=== PATIENT | female | born 1970 | race Caucasian/White ===

== ENCOUNTER → 2020-12-19 09:46 | Outpatient (CLI) | payer OTHER, MEDICAID, SELFPAY ==
[2020-12-19 19:29] LABS: Vitamin D 25 Hydroxy (D3) 20.6 ng/mL (30.0-100.0)
[2020-12-19 19:41] LABS: Add Manual Diff / Slide Review NO; Basophils Absolute Auto 0 /uL (0-100); Basophils Percent Auto 0.7 % (0-2); Eosinophils Absolute Auto 100 /uL (0-450); Eosinophils Percent Auto 2.8 % (2-4); Hematocrit 41.6 % (36-46); Hemoglobin 13.9 g/dL (12.0-16.0); Lymphocytes Absolute Auto 1800 /uL (1100-4500); Mean Corpuscular HGB Conc 33.3 % (30-36); Mean Corpuscular Hemoglobin 31.7 PG (26-34); Monocytes Absolute Auto 600 /uL (0-900); Monocytes Percent Auto 13.4 % (3-14); Neutrophils Absolute Auto 1800 /uL (1500-7000); Neutrophils Percent Auto 42.1 % (50-75); Platelet Count 172 X10^3/uL (150-400); Red Blood Cell Count 4.38 X10^6/uL (4.0-5.2); Red Cell Distribution Width 12.9 % (11.6-14.8); White Blood Cell Count 4.4 X10^3/uL (4.5-11.0)
[2020-12-19 19:42] LABS: TSH w/ Reflex to FT4 1.83 uIU/mL (0.47-4.68)
== END ==
PROVIDERS: PCP Family Medicine; Visit Provider Family Medicine
DX: E03.9 Hypothyroidism, unspecified (principal)
CPT/HCPCS: 82306; 84443; 85025

== ENCOUNTER → 2021-01-04 10:22 | Outpatient (CLI) | payer OTHER, MEDICAID, SELFPAY ==
[2021-01-05 10:37] LABS: SARS-CoV19- IgM Negative (Negative)
== END ==
PROVIDERS: PCP Family Medicine; Referring Provider Family Medicine; Visit Provider Family Medicine
DX: E03.9 Hypothyroidism, unspecified (principal); Z20.822 Contact with and (suspected) exposure to COVID-19
CPT/HCPCS: 36415; 86769

== ENCOUNTER → 2021-08-29 08:08 | Outpatient (CLI) | payer OTHER, MEDICAID, SELFPAY ==
[2021-08-29 18:48] LABS: Add Manual Diff / Slide Review NO; Basophils Absolute Auto 0 /uL (0-100); Basophils Percent Auto 0.5 % (0-2); Eosinophils Absolute Auto 100 /uL (0-450); Hematocrit 40.3 % (36-46); Hemoglobin 13.7 g/dL (12.0-16.0); Lymphocytes Absolute Auto 1600 /uL (1100-4500); Mean Corpuscular HGB Conc 34.1 % (30-36); Mean Corpuscular Hemoglobin 31.7 PG (26-34); Mean Corpuscular Volume 93.2 fL (80-100); Monocytes Absolute Auto 400 /uL (0-900); Monocytes Percent Auto 8.5 % (3-14); Neutrophils Absolute Auto 2900 /uL (1500-7000); Platelet Count 178 X10^3/uL (150-400); Red Blood Cell Count 4.33 X10^6/uL (4.0-5.2); Red Cell Distribution Width 12.9 % (11.6-14.8); White Blood Cell Count 5.1 X10^3/uL (4.5-11.0)
[2021-08-29 18:56] LABS: Alanine Aminotransferase 11 IU/L (<35); Albumin 4.1 g/dL (3.5-5.0); Albumin Globulin Ratio 1.6 (1.0-2.8); Alkaline Phosphatase 61 U/L (38-126); Aspartate Aminotransferase 22 IU/L (14-36); Bilirubin Total 0.6 mg/dL (0.2-1.3); Blood Urea Nitrogen 12 mg/dL (7-17); Calcium 9.1 mg/dL (8.4-10.2); Carbon Dioxide 29 mmol/L (22-32); Chloride 103 mmol/L (98-107); Cholesterol 220 mg/dL (140-199); Estimated Glomerular Filt Rate > 60.0 mL/min (>60); Globulin 2.5 g/dL (1.7-4.1); Glucose 94 mg/dL (70-100); HDL Cholesterol 82 mg/dL (40-60); HEMOLYSIS 30 (0-50); LDL Cholesterol Calculated 122 mg/dL (<100); Potassium 3.5 mmol/L (3.4-5.1); Sodium 137 mmol/L (137-145); Total Protein 6.6 g/dL (6.3-8.2); Triglycerides 82 mg/dL (35-150)
[2021-08-29 19:14] LABS: Vitamin D 25 Hydroxy (D3) 44.9 ng/mL (30.0-100.0)
[2021-08-29 19:28] LABS: TSH w/ Reflex to FT4 2.22 uIU/mL (0.47-4.68)
== END ==
PROVIDERS: PCP Family Medicine; Visit Provider Physician Assistant
DX: E03.9 Hypothyroidism, unspecified (principal); E78.00 Pure hypercholesterolemia, unspecified
CPT/HCPCS: 80053; 80061; 82306; 84443; 85025

== ENCOUNTER → 2022-08-16 14:29 | Outpatient (CLI) | payer OTHER, MEDICAID, SELFPAY ==
--- NOTE | 2022-08-16 14:32 | DI.MG.S_ITS ---
BILATERAL DIGITAL SCREENING MAMMOGRAM 3D/2D WITH CAD: 08/16/2022 CLINICAL: Baseline exam. Routine screening. No prior exams were available for comparison. Both breasts are heterogeneously dense, which may obscure small masses (category c / 51-75% glandular tissue). Current study was also evaluated with a Computer Aided Detection (CAD) system. There is a possible 0.5 cm equal density focal asymmetry in the right breast at 9 o'clock middle depth. No other significant masses, calcifications, or other findings are seen in either breast. IMPRESSION: INCOMPLETE: NEEDS ADDITIONAL IMAGING EVALUATION The possible 0.5 cm equal density focal asymmetry in the right breast is indeterminate. Additional views with possible ultrasound are recommended. Based on the Tyrer Cuzick model (a risk assessment model) the patient's lifetime risk is 11.1% and her 10 year risk is 3.2%. According to the ACR, ACS, and NCCN guidelines, an annual breast MRI exam along with mammogram is recommended if the patient's lifetime risk is 20% or greater. This exam was interpreted at Station ID: [id number]. NOTE: For mammograms, a report in lay terms will be sent to the patient. Approximately 15% of breast malignancies will not be visualized mammographically. In the management of a palpable breast mass, a negative mammogram must not discourage biopsy of a clinically suspicious lesion. Electronically Signed By: Jv Gonzalez M.D. aty/:08/16/2022 20:06:59 letter sent: Additional Imaging Needed ACR BI-RADS Category 0: Incomplete 3340F
== END ==
PROVIDERS: PCP Physician Assistant; Referring Provider Physician Assistant; Visit Provider Physician Assistant
DX: Z12.31 Encounter for screening mammogram for malignant neoplasm of breast (principal); Z13.820 Encounter for screening for osteoporosis; M81.0 Age-related osteoporosis without current pathological fracture; Z78.0 Asymptomatic menopausal state; M77.11 Lateral epicondylitis, right elbow
CPT/HCPCS: 77063; 77067; 77080

== ENCOUNTER → 2022-10-22 13:39 | Outpatient (CLI) | payer OTHER, MEDICAID, SELFPAY ==
--- NOTE | 2022-10-22 | DI.MG.S_ITS ---
UNILATERAL RIGHT DIGITAL DIAGNOSTIC MAMMOGRAM 3D/2D WITH ADDITIONAL VIEWS: 10/22/2022 CLINICAL: Additional evaluation requested from prior study. Comparison is made to exam dated: 08/16/2022 mammogram - [facility]. The right breast is heterogeneously dense, which may obscure small masses (category c / 51-75% glandular tissue). The possible focal asymmetry in the right breast at 9 o'clock middle depth is not reproduced and presumably represented superimposed breast tissue. No other significant masses or calcifications are seen in the breast. IMPRESSION: INCOMPLETE: NEEDS ADDITIONAL IMAGING EVALUATION An ultrasound is recommended to confirm the no longer seen focal asymmetry in the right breast middle depth. Based on the Tyrer Cuzick model (a risk assessment model) the patient's lifetime risk is 11.1% and her 10 year risk is 3.2%. According to the ACR, ACS, and NCCN guidelines, an annual breast MRI exam along with mammogram is recommended if the patient's lifetime risk is 20% or greater. This exam was interpreted at Station ID: [id number]. NOTE: For mammograms, a report in lay terms will be sent to the patient. Approximately 15% of breast malignancies will not be visualized mammographically. In the management of a palpable breast mass, a negative mammogram must not discourage biopsy of a clinically suspicious lesion. Electronically Signed By: Jarrett prescott/rosario:10/22/2022 14:32:17 ACR BI-RADS Category 0: Incomplete [id number]
--- NOTE | 2022-10-22 13:40 | DI.US.S_ITS ---
LIMITED ULTRASOUND OF RIGHT BREAST: 10/22/2022 CLINICAL: Patient returns today to evaluate a focal asymmetry in the right breast. Comparison is made to exams dated: 10/22/2022 mammogram and 08/16/2022 mammogram - [facility]. Real-time ultrasound of the right breast 9-10 o'clock region was performed. Song scale images of the real-time examination were reviewed. No significant abnormalities were seen sonographically in the right breast. IMPRESSION: NEGATIVE There is no sonographic evidence of malignancy. There is no abnormality seen in the right breast to correspond with the mammography finding which is consistent with normal fibroglandular tissue. Return to annual mammogram screening schedule is recommended. This exam was interpreted at Station ID: [id number]. Electronically Signed By: Jarrett prescott/rosario:10/22/2022 14:34:31 letter sent: Normal Exam Ultrasound BI-RADS: 1 Negative
== END ==
PROVIDERS: PCP Physician Assistant; Referring Provider Physician Assistant; Visit Provider Physician Assistant
DX: R92.8 Other abnormal and inconclusive findings on diagnostic imaging of breast (principal)
CPT/HCPCS: 76642; 77065; G0279

== ENCOUNTER → 2024-06-21 11:47 | Outpatient (CLI) | payer OTHER, MEDICAID, SELFPAY ==
--- NOTE | 2024-06-21 12:00 | DI.RAD.S_ITS ---
PROCEDURE: XR DEXA AXIAL SKELETON INDICATIONS: height loss COMPARISON: [facility], CR, XR DEXA AXIAL SKELETON, 08/16/2022, 14:51. FINDINGS: Lumbar Spine: Bone mineral density 0.705 g/cm2, T score -3.1, previously-2.6, representing a 7.5% decrease in bone mineral density. Left Hip: Bone mineral density 0.7 point g/cm2, T score -1.9, previously -1.7, representing a 2.6% decrease in bone mineral density. Left Femoral Neck: Bone mineral density 0.575 g/cm2, T score -2.5, previously-2.2, representing a 4.5% decrease in bone mineral density. Right Hip: Bone mineral density 0.683 g/cm2, T score -2.1, previously -1.8, representing a 5.6% decrease in bone mineral density. Right Femoral Neck: Bone mineral density 0.522 g/cm2, T score -3.0, previously -2.7, representing a 4.2% decrease in bone mineral density. Fracture Risk Calculation (when applicable): 10-year fracture risk of a major osteoporotic fracture 11 percent and of a hip fracture 2.7 percent. (T score greater or equal to -1.0 to: NORMAL) (T score from -1.1 to -2.4: OSTEOPENIA) (T score less than or equal to -2.5: OSTEOPOROSIS) IMPRESSION: 1. Osteoporosis of the lumbar spine. 2. Osteopenia of the hips. 3. Osteoporosis of the femoral necks. Follow-up guidelines as follows: Osteoporosis: Consider a repeat DEXA and Vertebral Fracture Assessment (VFA) exam in 2 years or sooner if medically necessary, to reassess this patient's status. Osteopenia: Consider a repeat DEXA in 2-3 years to reassess this patient's status, or if there is a new clinical indication. Normal: Consider a repeat DEXA in 5 years or sooner, or if there is a new clinical indication. All treatment decisions require clinical judgment and consideration of individual patient factors, including patient preferences, comorbidities, previous drug use, risk factors not captured in the FRAX model (e.g., frailty, falls, vitamin D deficiency, increased bone turnover, interval significant decline in bone density ) and possible under- or over-estimation of fracture risk by FRAX. In addition, the NOF Guide recommends that FDA-approved medical therapies be considered in postmenopausal women and men age >= 50 years with a: * Hip or vertebral (clinical or morphometric) fracture * T-score of <=-2.5 at the spine or hip * Ten-year fracture probability by FRAX of >= 3% for hip fracture or >=20% for major osteoporotic fracture. People with diagnosed cases of osteoporosis or at high risk for fracture should have regular bone mineral density tests. For patients eligible for Medicare, routine testing is allowed once every 2 years. The testing frequency can be increased to one year for patients who have rapidly progressing disease, those who are receiving or discontinuing medical therapy to restore bone mass, or have additional risk factors. Dictated by: Cholo Huerta M.D. on 06/21/2024 at 15:01 Approved by: Cholo Huerta M.D. on 06/21/2024 at 15:04
== END ==
PROVIDERS: PCP Physician Assistant; Referring Provider Physician Assistant; Visit Provider Physician Assistant
DX: M81.0 Age-related osteoporosis without current pathological fracture (principal)
CPT/HCPCS: 77080

== ENCOUNTER → 2024-07-22 08:12 | Outpatient (CLI) | payer OTHER, MEDICAID, SELFPAY ==
[2024-07-22 19:54] LABS: Alanine Aminotransferase 17 IU/L (<35); Albumin Globulin Ratio 1.4 (1.0-2.8); Alkaline Phosphatase 63 U/L (38-126); Aspartate Aminotransferase 25 IU/L (14-36); BUN Creatinine Ratio 19.4 (6-22); Bilirubin Total 0.7 mg/dL (0.2-1.3); Blood Urea Nitrogen 13 mg/dL (7-17); Calcium 9.2 mg/dL (8.4-10.2); Carbon Dioxide 27 mmol/L (22-32); Chloride 103 mmol/L (98-107); Cholesterol 266 mg/dL (140-199); Estimated Glomerular Filt Rate > 60 mL/min (>60); Globulin 2.9 g/dL (1.7-4.1); Glucose 90 mg/dL (70-100); HDL Cholesterol 86 mg/dL (40-60); HEMOLYSIS < 15 (0-50); LDL Cholesterol Calculated 165 mg/dL (<100); Magnesium 1.9 mg/dL (1.6-2.3); Potassium 3.8 mmol/L (3.4-5.1); Sodium 134 mmol/L (137-145); Total Protein 6.9 g/dL (6.3-8.2); Triglycerides 73 mg/dL (35-150)
[2024-07-22 19:59] LABS: Hematocrit 41.4 % (36-46); Hemoglobin 13.9 g/dL (12.0-16.0); Mean Corpuscular HGB Conc 33.7 % (30-36); Mean Corpuscular Hemoglobin 31.2 PG (26-34); Mean Corpuscular Volume 92.8 fL (80-100); Platelet Count 186 X10^3/uL (150-400); Red Blood Cell Count 4.46 X10^6/uL (4.0-5.2); Red Cell Distribution Width 13.2 % (11.6-14.8); White Blood Cell Count 4.8 X10^3/uL (4.5-11.0)
[2024-07-22 20:14] LABS: Add Manual Diff / Slide Review YES
[2024-07-22 20:26] LABS: Neutrophils Absolute Manual 2352 /uL (3000-5900); Total Cells Counted 100; Vitamin D 25 Hydroxy (D3) 34.5 ng/mL (30.0-100.0)
[2024-07-22 20:27] LABS: RBC Morphology Normal Morphology; Rouleaux 1+
[2024-07-22 20:28] LABS: Toxic Vacuolation Present
[2024-07-22 20:38] LABS: HIV 1 & 2 Ab/Ag 4th Gen Combo NEGATIVE (NEGATIVE); Hep C Virus Ab w/Reflex Quant NEGATIVE s/c (NEGATIVE)
[2024-07-22 20:40] LABS: TSH w/ Reflex to FT4 4.22 uIU/mL (0.47-4.68)
== END ==
PROVIDERS: PCP Physician Assistant; Visit Provider Physician Assistant
DX: Z12.11 Encounter for screening for malignant neoplasm of colon (principal); E78.00 Pure hypercholesterolemia, unspecified; E03.9 Hypothyroidism, unspecified; R92.8 Other abnormal and inconclusive findings on diagnostic imaging of breast; M81.0 Age-related osteoporosis without current pathological fracture; Z86.59 Personal history of other mental and behavioral disorders; Z79.899 Other long term (current) drug therapy
CPT/HCPCS: 80053; 80061; 82306; 83735; 84443; 85007; 85025; 86803; 87389

== ENCOUNTER → 2024-08-05 11:27 | Outpatient (CLI) | payer OTHER, SELFPAY ==
[2024-08-05 18:50] LABS: Hematocrit 42.2 % (36-46); Hemoglobin 14.3 g/dL (12.0-16.0); Mean Corpuscular HGB Conc 33.9 % (30-36); Mean Corpuscular Hemoglobin 31.3 PG (26-34); Mean Corpuscular Volume 92.4 fL (80-100); Platelet Count 201 X10^3/uL (150-400); Red Blood Cell Count 4.57 X10^6/uL (4.0-5.2); Red Cell Distribution Width 13.3 % (11.6-14.8); White Blood Cell Count 4.8 X10^3/uL (4.5-11.0)
[2024-08-05 19:43] LABS: Anisocytosis 1+; Neutrophils Absolute Manual 2640 /uL (3000-5900); Smudge Cells 1+; Total Cells Counted 100
== END ==
PROVIDERS: PCP Physician Assistant; Visit Provider Physician Assistant
DX: R79.9 Abnormal finding of blood chemistry, unspecified (principal)
CPT/HCPCS: 85025

== ENCOUNTER → 2024-09-16 11:26 | Outpatient (CLI) | payer OTHER, SELFPAY ==
[2024-09-16 19:31] LABS: Hematocrit 42.6 % (36-46); Hemoglobin 14.2 g/dL (12.0-16.0); Mean Corpuscular HGB Conc 33.4 % (30-36); Mean Corpuscular Hemoglobin 30.9 PG (26-34); Mean Corpuscular Volume 92.5 fL (80-100); Platelet Count 220 X10^3/uL (150-400); Red Cell Distribution Width 13.2 % (11.6-14.8)
[2024-09-16 19:55] LABS: HEMOLYSIS < 15 (0-50); Iron 109 ug/dL (37-170)
[2024-09-16 20:00] LABS: Alanine Aminotransferase 21 IU/L (<35); Albumin 4.7 g/dL (3.5-5.0); Albumin Globulin Ratio 1.7 (1.0-2.8); Alkaline Phosphatase 74 U/L (38-126); Aspartate Aminotransferase 28 IU/L (14-36); BUN Creatinine Ratio 17.6 (6-22); Bilirubin Total 0.5 mg/dL (0.2-1.3); Blood Urea Nitrogen 12 mg/dL (7-17); C-Reactive Protein Quant < 0.5 mg/dL (<1.0); Calcium 9.6 mg/dL (8.4-10.2); Carbon Dioxide 30 mmol/L (22-32); Chloride 101 mmol/L (98-107); Estimated Glomerular Filt Rate > 60 mL/min (>60); Globulin 2.8 g/dL (1.7-4.1); Glucose 101 mg/dL (70-100); HEMOLYSIS 19 (0-50); Potassium 3.9 mmol/L (3.4-5.1); Sodium 139 mmol/L (137-145); Total Protein 7.5 g/dL (6.3-8.2)
[2024-09-16 20:05] LABS: Rheumatoid Factor < 8.6 IU/mL (<12.0)
[2024-09-16 20:06] LABS: Erythrocyte Sedimentation Rate 4 MM/HR (0-20)
[2024-09-16 20:08] LABS: Percent Iron Saturation 40 % (15-50); Total Iron Binding Capacity 273 ug/dL (265-497); Transferrin 271 mg/dL (206-381)
[2024-09-16 20:20] LABS: Neutrophils Absolute Manual 2150 /uL (3000-5900); RBC Morphology Normal Morphology; Total Cells Counted 100
[2024-09-16 20:35] LABS: Ferritin 52 ng/mL (11-264)
[2024-09-16 20:45] LABS: Vitamin B12 181 pg/mL (239-931)
[2024-09-18 09:36] LABS: EBV EBNA Antibody IgG > 600.0 U/mL (0.0-17.9); EBV Virus IgG Ab > 600.0 U/mL (0.0-17.9); EBV Virus IgM Ab < 36.0 U/mL (0.0-35.9)
[2024-09-18 14:07] LABS: EBV Ab VCA, IgM <36.0 U/mL (0.0-35.9)
[2024-09-18 18:07] LABS: Free Kappa Lt Chains, Serum 13.5 mg/L (3.3-19.4); Free Lambda Lt Chains,Serum 11.9 mg/L (5.7-26.3)
[2024-09-20 13:41] LABS: CCP Antibodies IgG/IgA 2 units (0-19)
[2024-09-20 15:36] LABS: Alpha-1-Globulin 0.2 g/dL (0.0-0.4); Alpha-2-Globulin 0.7 g/dL (0.4-1.0); Gamma Globulin 1.1 g/dL (0.4-1.8)
== END ==
PROVIDERS: PCP Family Medicine; Visit Provider Family Medicine
DX: R79.9 Abnormal finding of blood chemistry, unspecified (principal); M54.50 Low back pain, unspecified; R53.83 Other fatigue
CPT/HCPCS: 80053; 82607; 82728; 82784; 83540; 83550; 83883; 84155; 84165; 85025; 85651; 86038; 86140; 86200; 86334; 86430; 86664; 86665

== ENCOUNTER → 2024-11-15 13:08 | Outpatient (CLI) | payer OTHER, SELFPAY ==
[2024-11-15 18:37] LABS: Hematocrit 40.8 % (36-46); Hemoglobin 13.6 g/dL (12.0-16.0); Mean Corpuscular HGB Conc 33.4 % (30-36); Mean Corpuscular Hemoglobin 30.8 PG (26-34); Platelet Count 188 X10^3/uL (150-400); Red Blood Cell Count 4.44 X10^6/uL (4.0-5.2); Red Cell Distribution Width 13.2 % (11.6-14.8); White Blood Cell Count 4.6 X10^3/uL (4.5-11.0)
[2024-11-15 19:44] LABS: Neutrophils Absolute Manual 1334 /uL (3000-5900); RBC Morphology Normal Morphology; Total Cells Counted 100
[2024-11-15 20:11] LABS: Vitamin B12 Reflex MMA if <400 234 pg/mL (239-931)
[2024-11-19 00:36] LABS: Methylmalonic Acid,Serum 129 nmol/L (0-378)
== END ==
PROVIDERS: PCP Family Medicine; Visit Provider Family Medicine
DX: E53.8 Deficiency of other specified B group vitamins (principal); D70.9 Neutropenia, unspecified; R79.9 Abnormal finding of blood chemistry, unspecified
CPT/HCPCS: 82607; 83921; 85025

== ENCOUNTER → 2024-12-13 10:54 | Outpatient (CLI) | payer OTHER, SELFPAY ==
[2024-12-13 19:25] LABS: Add Manual Diff / Slide Review NO; Basophils Absolute Auto 0 /uL (0-100); Basophils Percent Auto 0.5 % (0-2); Eosinophils Absolute Auto 100 /uL (0-450); Eosinophils Percent Auto 1.6 % (2-4); Hematocrit 42.8 % (36-46); Hemoglobin 14.2 g/dL (12.0-16.0); Lymphocytes Absolute Auto 1800 /uL (1100-4500); Lymphocytes Percent Auto 40.9 % (25-40); Mean Corpuscular HGB Conc 33.3 % (30-36); Mean Corpuscular Hemoglobin 30.9 PG (26-34); Mean Corpuscular Volume 92.8 fL (80-100); Monocytes Absolute Auto 500 /uL (0-900); Monocytes Percent Auto 10.4 % (3-14); Neutrophils Absolute Auto 2100 /uL (1500-7000); Neutrophils Percent Auto 46.6 % (50-75); Platelet Count 186 X10^3/uL (150-400); Red Blood Cell Count 4.61 X10^6/uL (4.0-5.2); Red Cell Distribution Width 12.9 % (11.6-14.8); White Blood Cell Count 4.4 X10^3/uL (4.5-11.0)
[2024-12-13 20:40] LABS: Folate 5.1 ng/mL (2.76-20.0); Vitamin B12 425 pg/mL (239-931)
[2024-12-16 11:40] LABS: Intrinsic Factor Blocking Aby 1.4 AU/mL (0.0-1.1)
== END ==
PROVIDERS: PCP Family Medicine; Visit Provider Family Medicine
DX: D72.821 Monocytosis (symptomatic) (principal); D70.9 Neutropenia, unspecified; E53.8 Deficiency of other specified B group vitamins
CPT/HCPCS: 82607; 82746; 85025; 86340

== ENCOUNTER → 2025-01-05 14:01 | Outpatient (CLI) | payer OTHER, SELFPAY ==
--- NOTE | 2025-01-05 14:03 | DI.MG.S_ITS ---
MM screening mammo BI: 01/05/2025. BI-RADS: 1 CLINICAL: 54-year old female for bilateral screening mammogram. Tyrer-Cuzick lifetime risk of 7.1%. No personal or first-degree family history of breast cancer. PRIOR EXAMS 10/22/2022, 08/16/2022. MAMMOGRAPHY TECHNIQUE: 2D and 3D (tomosynthesis) digital mammographic views obtained, with additional images as needed for full coverage. Current study was also evaluated with a Computer Aided Detection (CAD) system. DENSITY C. The breasts are heterogeneously dense, which may obscure small masses. MAMMOGRAPHY FINDINGS Bilateral: No suspicious mass, asymmetry, microcalcification, or other abnormality seen. IMPRESSION: * No evidence of malignancy. RECOMMENDATIONS Bilateral * Annual screening mammography. OVERALL ASSESSMENT CATEGORY BI-RADS-1: Negative. The [employer] recommends annual screening mammography beginning at age 40 for women with average risk of breast cancer. ELECTRONICALLY SIGNED: Phyllis Ramos M.D. on 01/12/2025 at 03:34:16 PM PT Interpreting Station ID: [id number]
== END ==
PROVIDERS: PCP Family Medicine; Referring Provider Family Medicine; Visit Provider Family Medicine
DX: Z12.31 Encounter for screening mammogram for malignant neoplasm of breast (principal); R92.333 Mammographic heterogeneous density, bilateral breasts
CPT/HCPCS: 77063; 77067

== ENCOUNTER → 2025-01-24 20:30 | Outpatient (CLI) | payer OTHER, SELFPAY | LOC: LAB 03-16 18:01 | PROVIDERS: PCP Family Medicine; Referring Provider Physician Assistant; Visit Provider Physician Assistant | DX: D51.0 Vitamin B12 deficiency anemia due to intrinsic factor deficiency (principal) | CPT/HCPCS: 87177 ==

== ENCOUNTER → 2025-02-07 15:47 | Outpatient (CLI) | payer OTHER, SELFPAY ==
[2025-02-07 16:50] LABS: C-Reactive Protein Quant < 0.5 mg/dL (<1.0)
[2025-02-07 16:52] LABS: Rheumatoid Factor < 8.6 IU/mL (<12.0)
[2025-02-07 16:53] LABS: Hematocrit 41.6 % (36-46); Hemoglobin 13.8 g/dL (12.0-16.0); Mean Corpuscular HGB Conc 33.3 % (30-36); Mean Corpuscular Hemoglobin 30.7 PG (26-34); Mean Corpuscular Volume 92.2 fL (80-100); Platelet Count 190 X10^3/uL (150-400); Red Blood Cell Count 4.51 X10^6/uL (4.0-5.2); Red Cell Distribution Width 13.2 % (11.6-14.8); White Blood Cell Count 5.4 X10^3/uL (4.5-11.0)
[2025-02-07 17:01] LABS: Erythrocyte Sedimentation Rate 5 MM/HR (0-20)
[2025-02-07 17:03] LABS: Free T4, Direct Thyroxine 0.94 ng/dL (0.78-2.19); Vitamin D 25 Hydroxy (D3) 48.3 ng/mL (30.0-100.0)
[2025-02-07 17:17] LABS: TSH w/ Reflex to FT4 2.18 uIU/mL (0.47-4.68)
[2025-02-07 17:36] LABS: Vitamin B12 535 pg/mL (239-931)
[2025-02-07 19:20] LABS: Neutrophils Absolute Manual 2754 /uL (3000-5900); Platelet Estimate Adequate on smear; RBC Morphology Normal Morphology; Total Cells Counted 100
[2025-02-09 06:36] LABS: Triiodothyronine T3 Total 90 ng/dL (71-180)
[2025-02-10 12:12] LABS: CCP Antibodies IgG/IgA 6 units (0-19)
[2025-02-12 05:08] LABS: ANA Screen, IFA Negative (.)
== END ==
PROVIDERS: PCP Family Medicine; Referring Provider Family Medicine; Visit Provider Family Medicine
DX: E55.9 Vitamin D deficiency, unspecified (principal); E53.8 Deficiency of other specified B group vitamins; D70.9 Neutropenia, unspecified; R53.83 Other fatigue; E87.1 Hypo-osmolality and hyponatremia; D72.821 Monocytosis (symptomatic); M81.0 Age-related osteoporosis without current pathological fracture; D51.0 Vitamin B12 deficiency anemia due to intrinsic factor deficiency; M54.6 Pain in thoracic spine; M54.50 Low back pain, unspecified; M25.50 Pain in unspecified joint; Z86.59 Personal history of other mental and behavioral disorders
CPT/HCPCS: 36415; 82306; 82607; 84439; 84443; 84480; 85025; 85651; 86038; 86140; 86200; 86430

== ENCOUNTER → 2025-03-22 14:26 | Outpatient (CLI) | payer OTHER, SELFPAY ==
[2025-03-22 19:55] LABS: Alanine Aminotransferase 17 IU/L (<35); Albumin 4.5 g/dL (3.5-5.0); Albumin Globulin Ratio 1.7 (1.0-2.8); Alkaline Phosphatase 75 U/L (38-126); Blood Urea Nitrogen 17 mg/dL (7-17); Calcium 9.2 mg/dL (8.4-10.2); Carbon Dioxide 27 mmol/L (22-32); Chloride 103 mmol/L (98-107); Estimated Glomerular Filt Rate > 60 mL/min (>60); Globulin 2.6 g/dL (1.7-4.1); Glucose 129 mg/dL (70-99); HEMOLYSIS < 15 (0-50); Magnesium 1.7 mg/dL (1.6-2.3); Potassium 3.8 mmol/L (3.4-5.1); Sodium 139 mmol/L (137-145); Total Protein 7.1 g/dL (6.3-8.2)
== END ==
PROVIDERS: PCP Family Medicine; Visit Provider Internal Medicine Endocrinology, Diabetes & Metabolism
DX: M81.0 Age-related osteoporosis without current pathological fracture (principal)
CPT/HCPCS: 80053; 82523; 83735; 83970

== ENCOUNTER → 2025-08-08 14:25 | Outpatient (CLI) | payer OTHER, SELFPAY ==
[2025-08-08 19:57] LABS: Vitamin B12 376 pg/mL (239-931)
== END ==
PROVIDERS: PCP Family Medicine; Visit Provider Family Medicine
DX: E53.8 Deficiency of other specified B group vitamins (principal)
CPT/HCPCS: 82607